=== PATIENT | male | born 1955 | race Caucasian/White ===

== ENCOUNTER 2019-01-22 10:09 | Observation (INO) ==
[2019-01-22] MEDS ORDERED: Ipratropium/Albuterol Neb 3 ML IH ONE (10:39)
[2019-01-22 11:42] LABS: Basophils % 0.3 %; Eosinophils # 0.1 K/mcL (0.0-0.6); Eosinophils % 1.5 %; Hematocrit 33.9 % (37.5-50.1); Hemoglobin 11.7 g/dL (12.9-16.9); Immature Granulocytes % 0.9 % (0-4); Lymphocytes # 0.7 K/mcL (0.6-4.6); Lymphocytes % 20.2 %; Mean Corpuscular HGB Conc 34.5 g/dL (31.6-35.5); Mean Corpuscular Hemoglobin 33.1 pg (28.0-33.3); Mean Corpuscular Volume 95.8 fL (83.0-100.0); Monocytes # 0.4 K/mcL (0.0-1.3); Monocytes % 10.7 %; Neutrophils # 2.2 K/mcL (1.6-8.9); Red Blood Count 3.54 M/mcL (4.19-5.50); Red Cell Distribution Width 12.7 % (11.5-14.5); Segmented Neutrophils % 66.4 %; White Blood Count 3.3 K/mcL (4.3-11.1)
[2019-01-22 11:43] LABS: Platelet Count 84 K/mcL (140-400)
[2019-01-22] MEDS ORDERED: Aspirin 81 MG TAB.CHEW PO SCH (11:45)
[2019-01-22 11:58] LABS: BUN/Creatinine Ratio 10 (6-26); Blood Urea Nitrogen 10 mg/dL (8-23); Calcium 9.1 mg/dL (8.6-10.3); Carbon Dioxide 27 mEq/L (23-29); Chloride 104 mEq/L (98-107); Glucose 124 mg/dL (70-105); Osmolality,Calculated 284 (280-300); Potassium 4.1 mEq/L (3.5-5.1); Sodium 137 mEq/L (136-145); eGFR For African Americans > 60 (> 60); eGFR For Non-African Americans > 60 (> 60)
[2019-01-22] MEDS ORDERED: Azithromycin 500 MG in D5% in Water 250 ML IVPB ONE (12:15)
[2019-01-22] MEDS ORDERED: Naloxone 0.4 MG/ML INJ IVP PRN (16:15)
[2019-01-22] MEDS ORDERED: Acetaminophen 325 MG TABLET PO PRN (16:15)
[2019-01-22] MEDS ORDERED: *HR* HYDROcodone/Acet 5/325 mg TABLET PO PRN (16:15)
[2019-01-22] MEDS ORDERED: Ondansetron 4 MG/2 ML VIAL IVP PRN (16:15)
[2019-01-22] MEDS ORDERED: Albuterol 2.5 MG/3 ML NEBULIZER IH PRN (16:18)
[2019-01-22 18:48] LABS: Adenovirus Not Detected (Not Detect); Bordetella Pertussis Not Detected (Not Detect); Chlamydophila pneumoniae Not Detected (Not Detect); Coronavirus 229E Not Detected (Not Detect); Coronavirus HKU1 Not Detected (Not Detect); Coronavirus NL63 Not Detected (Not Detect); Coronavirus OC43 Not Detected (Not Detect); Human Metapneumovirus Not Detected (Not Detect); Human Rhinovirus/Enterovirus Not Detected (Not Detect); Influenza A Subtype 2009 H1 Not Detected (Not Detect); Influenza B Not Detected (Not Detect); Mycoplasma pneumoniae Not Detected (Not Detect); Parainfluenza Virus 1 Not Detected (Not Detect); Parainfluenza Virus 2 Not Detected (Not Detect); Parainfluenza Virus 3 Not Detected (Not Detect); Parainfluenza Virus 4 Not Detected (Not Detect); Respiratory Syncytial Virus Not Detected (Not Detect)
[2019-01-22] MEDS: Ipratropium/Albuterol Neb 3 ML IH SCH ×2 (19:53→23:08)
[2019-01-23 01:43] LABS: Eosinophils % 0.9 %
[2019-01-23 01:45] LABS: Basophils % 0.6 %; Hematocrit 31.5 % (37.5-50.1); Immature Granulocytes % 1.3 % (0-4); Immature Platelets 2.4 % (1.1-6.1); Lymphocytes # 0.3 K/mcL (0.6-4.6); Lymphocytes % 8.8 %; Mean Corpuscular HGB Conc 34.9 g/dL (31.6-35.5); Mean Corpuscular Hemoglobin 33.5 pg (28.0-33.3); Mean Platelet Volume 9.9 fL (9.4-12.4); Monocytes # 0.4 K/mcL (0.0-1.3); Monocytes % 12.9 %; Neutrophils # 2.4 K/mcL (1.6-8.9); Red Blood Count 3.28 M/mcL (4.19-5.50); Red Cell Distribution Width 12.9 % (11.5-14.5); Segmented Neutrophils % 75.5 %; White Blood Count 3.2 K/mcL (4.3-11.1)
[2019-01-23 01:49] LABS: Platelet Count 87 K/mcL (140-400)
[2019-01-23 02:03] LABS: BUN/Creatinine Ratio 10 (6-26); Blood Urea Nitrogen 11 mg/dL (8-23); Calcium 8.9 mg/dL (8.6-10.3); Carbon Dioxide 26 mEq/L (23-29); Chloride 104 mEq/L (98-107); Glucose 133 mg/dL (70-105); Magnesium 1.8 mg/dL (1.6-2.6); Osmolality,Calculated 287 (280-300); Potassium 3.5 mEq/L (3.5-5.1); Sodium 138 mEq/L (136-145); eGFR For African Americans > 60 (> 60); eGFR For Non-African Americans > 60 (> 60)
[2019-01-23] MEDS: Ipratropium/Albuterol Neb 3 ML IH SCH ×3 (04:15→11:25)
[2019-01-23] MEDS ORDERED: Azithromycin 500 MG in D5% in Water 250 ML IVPB SCH (08:00)
[2019-01-23] MEDS ORDERED: cefTRIAXone 1,000 MG in Water for inj. (sterile) 10 ML IVP SCH (09:00)
[2019-01-23] MEDS ORDERED: lamiVUDine 150 MG TABLET PO SCH (09:00)
[2019-01-23] MEDS: Loratadine 10 MG TABLET PO SCH (09:54)
[2019-01-23] MEDS: Aspirin Enteric Coated 81 MG Tablet PO SCH (09:54)
[2019-01-23] MEDS ORDERED: Doxycycline 100 MG CAPSULE PO SCH (11:15)
[2019-01-23] MEDS: predniSONE 20 MG TABLET PO SCH (12:22)
[2019-01-23] MEDS: Ipratropium/Albuterol Neb 3 ML IH PRN (22:12)
[2019-01-24] MEDS: Ipratropium/Albuterol Neb 3 ML IH PRN (03:18)
[2019-01-24 08:01] VITALS: BP 105/66
[2019-01-24] MEDS: Aspirin Enteric Coated 81 MG Tablet PO SCH (08:56)
[2019-01-24] MEDS: predniSONE 20 MG TABLET PO SCH (08:57)
[2019-01-24] MEDS: Loratadine 10 MG TABLET PO SCH (08:57)
[2019-01-24] MEDS ORDERED: lamiVUDine 150 MG TABLET PO SCH (09:00)
[2019-01-24] MEDS ORDERED: cefTRIAXone 1,000 MG in Water for inj. (sterile) 10 ML IVP SCH (09:00)
== END 2019-01-24 11:12 | disposition home or self-care (01) ==
LOC: EMEROOARM 10:09 → 3BNU 10:09
PROVIDERS: ADMIT Internal Medicine; ATTEND Internal Medicine

== ENCOUNTER 2019-05-05 18:23 | Inpatient (IN) ==
[2019-05-05] MEDS ORDERED: Ipratropium/Albuterol Neb 3 ML IH ONE ×3 (20:33→22:45)
[2019-05-05] MEDS ORDERED: 0.9 % Sodium Chloride 1,000 ML IVC ONE (20:33)
[2019-05-05 21:29] LABS: Basophils % 0.4 %; Eosinophils % 1.1 %; Hematocrit 32.6 % (37.5-50.1); Hemoglobin 11.7 g/dL (12.9-16.9); Mean Corpuscular HGB Conc 35.9 g/dL (31.6-35.5); Mean Corpuscular Hemoglobin 33.8 pg (28.0-33.3); Mean Corpuscular Volume 94.2 fL (83.0-100.0); Mean Platelet Volume 9.9 fL (9.4-12.4); Red Blood Count 3.46 M/mcL (4.19-5.50); Red Cell Distribution Width 13.4 % (11.5-14.5)
[2019-05-05 21:30] LABS: White Blood Count 2.8 K/mcL (4.3-11.1)
[2019-05-05 21:31] LABS: Immature Granulocytes % 13.6 % (0-4); Lymphocytes # 0.3 K/mcL (0.6-4.6); Lymphocytes % 12.2 %; Monocytes # 0.4 K/mcL (0.0-1.3); Neutrophils # 1.6 K/mcL (1.6-8.9); Segmented Neutrophils % 58.7 %
[2019-05-05 21:32] LABS: Platelet Count 82 K/mcL (140-400)
[2019-05-05 21:48] LABS: Platelet Estimate Decreased (Normal)
[2019-05-05 21:50] LABS: BUN/Creatinine Ratio 14 (6-26); Blood Urea Nitrogen 15 mg/dL (8-23); Calcium 8.4 mg/dL (8.6-10.3); Carbon Dioxide 26 mEq/L (23-29); Chloride 100 mEq/L (98-107); Glucose 95 mg/dL (70-105); Osmolality,Calculated 283 (280-300); Potassium 3.3 mEq/L (3.5-5.1); Sodium 136 mEq/L (136-145); eGFR For African Americans > 60 (> 60); eGFR For Non-African Americans > 60 (> 60)
[2019-05-05 21:51] LABS: Troponin I < 0.03 ng/mL (< 0.04)
[2019-05-05] MEDS ORDERED: cefTRIAXone 1,000 MG in Water for inj. (sterile) 10 ML IVP ONE (22:31)
[2019-05-05] MEDS ORDERED: Benzonatate 100 MG CAPSULE PO STA (22:35)
[2019-05-05] MEDS: Azithromycin 500 MG in 0.9 % Sodium Chloride 250 ML IVPB ONE ×2 (22:55→23:02)
[2019-05-05] MEDS ORDERED: levoFLOXacin 750 MG/150 ML 750 MG/150 ML BAG IVPB ONE (23:05)
[2019-05-06] MEDS ORDERED: Naloxone 0.4 MG/ML INJ IVP PRN (03:42)
[2019-05-06 04:49] LABS: Hematocrit 31.4 % (37.5-50.1); Mean Corpuscular Hemoglobin 33.6 pg (28.0-33.3)
[2019-05-06 04:51] LABS: Hemoglobin 11.2 g/dL (12.9-16.9); Immature Platelets 2.3 % (1.1-6.1); Mean Corpuscular HGB Conc 35.7 g/dL (31.6-35.5); Mean Corpuscular Volume 94.3 fL (83.0-100.0); Mean Platelet Volume 9.7 fL (9.4-12.4); Red Blood Count 3.33 M/mcL (4.19-5.50); Red Cell Distribution Width 13.2 % (11.5-14.5); White Blood Count 2.6 K/mcL (4.3-11.1)
[2019-05-06 05:01] LABS: BUN/Creatinine Ratio 13 (6-26); Blood Urea Nitrogen 14 mg/dL (8-23); Calcium 8.1 mg/dL (8.6-10.3); Carbon Dioxide 27 mEq/L (23-29); Chloride 101 mEq/L (98-107); Glucose 105 mg/dL (70-105); Magnesium 1.6 mg/dL (1.6-2.6); Osmolality,Calculated 285 (280-300); Potassium 3.5 mEq/L (3.5-5.1); Sodium 137 mEq/L (136-145); eGFR For African Americans > 60 (> 60); eGFR For Non-African Americans > 60 (> 60)
[2019-05-06] MEDS: Benzonatate 100 MG CAPSULE PO PRN (22:50)
[2019-05-06] MEDS: levoFLOXacin 750 MG/150 ML 750 MG/150 ML BAG IVPB SCH (22:51)
[2019-05-07 07:42] LABS: BUN/Creatinine Ratio 14 (6-26); Blood Urea Nitrogen 14 mg/dL (8-23); Calcium 8.7 mg/dL (8.6-10.3); Carbon Dioxide 27 mEq/L (23-29); Chloride 100 mEq/L (98-107); Glucose 101 mg/dL (70-105); Osmolality,Calculated 277 (280-300); Potassium 3.9 mEq/L (3.5-5.1); Sodium 133 mEq/L (136-145); eGFR For African Americans > 60 (> 60); eGFR For Non-African Americans > 60 (> 60)
[2019-05-07] MEDS: Budesonide/Formoterol 160/4.5 1 PUFF INH IH SCH (07:43)
[2019-05-07] MEDS: Loratadine 10 MG TABLET PO SCH (10:03)
[2019-05-07] MEDS: Benzonatate 100 MG CAPSULE PO PRN ×2 (10:03→18:30)
[2019-05-07] MEDS: Acetaminophen 325 MG TABLET PO PRN ×2 (12:16→18:30)
[2019-05-07 12:36] LABS: Hemoglobin 13.1 g/dL (12.9-16.9); Red Cell Distribution Width 13.2 % (11.5-14.5)
[2019-05-07 12:37] LABS: Basophils % 0.3 %; Eosinophils # 0.1 K/mcL (0.0-0.6); Eosinophils % 2.4 %; Immature Granulocytes % 2.1 % (0-4); Immature Platelets 3.6 % (1.1-6.1); Lymphocytes # 0.2 K/mcL (0.6-4.6); Lymphocytes % 7.2 %; Mean Corpuscular HGB Conc 36.4 g/dL (31.6-35.5); Mean Corpuscular Hemoglobin 33.9 pg (28.0-33.3); Monocytes # 0.4 K/mcL (0.0-1.3); Monocytes % 12.6 %; Neutrophils # 2.5 K/mcL (1.6-8.9); Red Blood Count 3.87 M/mcL (4.19-5.50); Segmented Neutrophils % 75.4 %; White Blood Count 3.3 K/mcL (4.3-11.1)
[2019-05-07 12:39] LABS: Platelet Count 88 K/mcL (140-400)
[2019-05-07] MEDS: Ipratropium/Albuterol Neb 3 ML IH PRN (19:37)
[2019-05-08] MEDS: levoFLOXacin 750 MG/150 ML 750 MG/150 ML BAG IVPB SCH ×2 (00:10→23:25)
[2019-05-08 02:59] LABS: Basophils % 0.4 %; White Blood Count 2.8 K/mcL (4.3-11.1)
[2019-05-08 03:01] LABS: Eosinophils # 0.1 K/mcL (0.0-0.6); Hematocrit 35.3 % (37.5-50.1); Hemoglobin 12.9 g/dL (12.9-16.9); Immature Granulocytes % 3.6 % (0-4); Lymphocytes # 0.3 K/mcL (0.6-4.6); Lymphocytes % 10.5 %; Mean Corpuscular HGB Conc 36.5 g/dL (31.6-35.5); Mean Corpuscular Hemoglobin 33.9 pg (28.0-33.3); Mean Corpuscular Volume 92.7 fL (83.0-100.0); Mean Platelet Volume 9.5 fL (9.4-12.4); Monocytes # 0.4 K/mcL (0.0-1.3); Monocytes % 14.1 %; Neutrophils # 1.9 K/mcL (1.6-8.9); Red Blood Count 3.81 M/mcL (4.19-5.50); Red Cell Distribution Width 13.1 % (11.5-14.5); Segmented Neutrophils % 67.4 %
[2019-05-08 03:02] LABS: Platelet Count 86 K/mcL (140-400)
[2019-05-08 03:19] LABS: BUN/Creatinine Ratio 21 (6-26); Blood Urea Nitrogen 21 mg/dL (8-23); Calcium 8.7 mg/dL (8.6-10.3); Carbon Dioxide 26 mEq/L (23-29); Chloride 101 mEq/L (98-107); Glucose 106 mg/dL (70-105); Osmolality,Calculated 283 (280-300); Potassium 3.5 mEq/L (3.5-5.1); Sodium 135 mEq/L (136-145); eGFR For African Americans > 60 (> 60); eGFR For Non-African Americans > 60 (> 60)
[2019-05-08] MEDS: Budesonide/Formoterol 160/4.5 1 PUFF INH IH SCH (07:32)
[2019-05-08] MEDS: Loratadine 10 MG TABLET PO SCH (10:00)
[2019-05-08] MEDS: Acetaminophen 325 MG TABLET PO PRN (10:00)
[2019-05-08] MEDS: Aspirin Enteric Coated 81 MG Tablet PO SCH (10:00)
[2019-05-08] MEDS: Benzonatate 100 MG CAPSULE PO PRN ×2 (10:01→21:27)
[2019-05-08] MEDS: Ipratropium/Albuterol Neb 3 ML IH PRN (12:07)
[2019-05-09 04:18] LABS: Eosinophils % 3.7 %; Monocytes % 10.3 %; Red Cell Distribution Width 13.2 % (11.5-14.5)
[2019-05-09 04:20] LABS: Basophils % 0.3 %; Eosinophils # 0.1 K/mcL (0.0-0.6); Hematocrit 35.1 % (37.5-50.1); Immature Platelets 3.2 % (1.1-6.1); Lymphocytes # 0.4 K/mcL (0.6-4.6); Mean Corpuscular Hemoglobin 34.2 pg (28.0-33.3); Mean Corpuscular Volume 92.4 fL (83.0-100.0); Mean Platelet Volume 9.8 fL (9.4-12.4); Monocytes # 0.3 K/mcL (0.0-1.3); Neutrophils # 2.1 K/mcL (1.6-8.9); Segmented Neutrophils % 69.7 %
[2019-05-09 04:21] LABS: Platelet Count 89 K/mcL (140-400)
[2019-05-09 04:35] LABS: BUN/Creatinine Ratio 21 (6-26); Blood Urea Nitrogen 22 mg/dL (8-23); Calcium 8.7 mg/dL (8.6-10.3); Carbon Dioxide 26 mEq/L (23-29); Chloride 102 mEq/L (98-107); Glucose 117 mg/dL (70-105); Osmolality,Calculated 284 (280-300); Sodium 135 mEq/L (136-145); eGFR For African Americans > 60 (> 60); eGFR For Non-African Americans > 60 (> 60)
[2019-05-09] MEDS: Ipratropium/Albuterol Neb 3 ML IH PRN (07:35)
[2019-05-09] MEDS: Budesonide/Formoterol 160/4.5 1 PUFF INH IH SCH (07:35)
[2019-05-09] MEDS: Aspirin Enteric Coated 81 MG Tablet PO SCH (09:56)
[2019-05-09] MEDS: Loratadine 10 MG TABLET PO SCH (09:56)
[2019-05-09 10:07] VITALS: BP 114/78
== END 2019-05-09 12:22 | disposition home or self-care (01) | DRG 139 ==
LOC: 3ANU 18:23 → EMEROOARM 18:23 → SUATTDRO 23:24 → 3ANU 23:28
PROVIDERS: ADMIT Family Medicine; ATTEND Internal Medicine

== ENCOUNTER 2019-07-11 19:49 | Observation (INO) ==
[2019-07-11 21:37] LABS: Basophils % 0.6 %; Eosinophils # 0.1 K/mcL (0.0-0.6); Hematocrit 37.1 % (37.5-50.1); Hemoglobin 13.3 g/dL (12.9-16.9); Immature Granulocytes % 3.3 % (0-4); Lymphocytes # 0.6 K/mcL (0.6-4.6); Lymphocytes % 13.1 %; Mean Corpuscular HGB Conc 35.8 g/dL (31.6-35.5); Mean Corpuscular Hemoglobin 32.8 pg (28.0-33.3); Mean Corpuscular Volume 91.6 fL (83.0-100.0); Mean Platelet Volume 9.8 fL (9.4-12.4); Monocytes # 0.4 K/mcL (0.0-1.3); Neutrophils # 3.6 K/mcL (1.6-8.9); Platelet Count 149 K/mcL (140-400); Red Blood Count 4.05 M/mcL (4.19-5.50); Red Cell Distribution Width 13.1 % (11.5-14.5); White Blood Count 4.9 K/mcL (4.3-11.1)
[2019-07-11 21:54] LABS: Alanine Aminotransferase 19 Units/L (7-52); Albumin 3.5 g/dL (3.5-5.7); Albumin/Globulin Ratio 1.3 (1.1-2.2); Alkaline Phosphatase 69 Units/L (34-104); Aspartate Amino Transferase 23 Units/L (13-39); BUN/Creatinine Ratio 12 (6-26); Bilirubin,Total 1.1 mg/dL (0.3-1.0); Blood Urea Nitrogen 12 mg/dL (8-23); Carbon Dioxide 25 mEq/L (23-29); Chloride 100 mEq/L (98-107); Globulin 2.8 g/dL (2.4-3.5); Glucose 93 mg/dL (70-105); Osmolality,Calculated 275 (280-300); Sodium 133 mEq/L (136-145); Total Protein 6.3 g/dL (6.4-8.9); eGFR For African Americans > 60 (> 60); eGFR For Non-African Americans > 60 (> 60)
[2019-07-11 22:04] LABS: Bilirubin,Urine Negative (Negative); Blood,Urine Negative (Negative); Clarity,Urine Clear (Clear); Color,Urine Yellow (Yellow); Glucose,Urine (UA) Normal (Normal); Ketones,Urine Negative (Negative); Leukocyte Esterase,Urine Negative (Negative); Nitrite,Urine Negative (Negative); PH,Urine 5.5 pH Units (5.0-8.0); Protein,Urine Negative (Neg-Trace); Specific Gravity,Urine 1.025 (1.010-1.025); Urobilinogen,Urine Normal (Normal)
[2019-07-11 22:14] LABS: Bacteria,Urine None Seen per hpf (None-Few); Hyaline Casts,Urine None Seen per lpf (None-Few); RBC,Urine 0-3 per hpf (0-3); Squamous Epithelial Cell,Urine Few per lpf (None-Few); WBC,Urine 0-3 per hpf (0-3)
[2019-07-11 22:19] LABS: Platelet Estimate Normal (Normal)
[2019-07-12] MEDS ORDERED: Naloxone 0.4 MG/ML INJ IVP PRN
[2019-07-12] MEDS: hydrOXYzine pamoate 25 MG CAPSULE PO PRN ×2 (02:50→21:15)
[2019-07-12] MEDS: LAMIVUDINE 100 MG PO SCH ×2 (02:51→08:10)
[2019-07-12 06:16] LABS: Basophils % 0.7 %; Eosinophils % 0.9 %; Hematocrit 34.3 % (37.5-50.1); Hemoglobin 11.8 g/dL (12.9-16.9); Immature Granulocytes % 8.7 % (0-4); Lymphocytes # 0.8 K/mcL (0.6-4.6); Lymphocytes % 17.9 %; Mean Corpuscular HGB Conc 34.4 g/dL (31.6-35.5); Mean Corpuscular Hemoglobin 33.1 pg (28.0-33.3); Mean Corpuscular Volume 96.1 fL (83.0-100.0); Mean Platelet Volume 9.8 fL (9.4-12.4); Monocytes # 0.4 K/mcL (0.0-1.3); Monocytes % 9.2 %; Platelet Count 117 K/mcL (140-400); Red Blood Count 3.57 M/mcL (4.19-5.50); Red Cell Distribution Width 13.1 % (11.5-14.5); Segmented Neutrophils % 62.6 %; White Blood Count 4.2 K/mcL (4.3-11.1)
[2019-07-12 06:24] LABS: Neutrophils # 2.6 K/mcL (1.6-8.9)
[2019-07-12 06:38] LABS: BUN/Creatinine Ratio 12 (6-26); Blood Urea Nitrogen 12 mg/dL (8-23); Calcium 8.7 mg/dL (8.6-10.3); Carbon Dioxide 27 mEq/L (23-29); Chloride 99 mEq/L (98-107); Glucose 100 mg/dL (70-105); Osmolality,Calculated 278 (280-300); Potassium 4.3 mEq/L (3.5-5.1); Sodium 134 mEq/L (136-145); eGFR For African Americans > 60 (> 60); eGFR For Non-African Americans > 60 (> 60)
[2019-07-12 06:56] LABS: Platelet Estimate Normal (Normal)
[2019-07-12] MEDS ORDERED: Ipratropium/Albuterol Neb 3 ML IH PRN (11:54)
[2019-07-13 05:35] LABS: BUN/Creatinine Ratio 17 (6-26); Blood Urea Nitrogen 16 mg/dL (8-23); Calcium 8.4 mg/dL (8.6-10.3); Carbon Dioxide 28 mEq/L (23-29); Chloride 100 mEq/L (98-107); Glucose 110 mg/dL (70-105); Osmolality,Calculated 282 (280-300); Potassium 4.2 mEq/L (3.5-5.1); Sodium 135 mEq/L (136-145); eGFR For African Americans > 60 (> 60); eGFR For Non-African Americans > 60 (> 60)
[2019-07-13 05:58] LABS: Hematocrit 34.6 % (37.5-50.1); Hemoglobin 12.4 g/dL (12.9-16.9); Lymphocytes # 0.8 K/mcL (0.6-4.6); Mean Corpuscular HGB Conc 35.8 g/dL (31.6-35.5); Mean Corpuscular Hemoglobin 32.9 pg (28.0-33.3); Mean Corpuscular Volume 91.8 fL (83.0-100.0); Mean Platelet Volume 9.9 fL (9.4-12.4); Platelet Count 136 K/mcL (140-400); Red Blood Count 3.77 M/mcL (4.19-5.50); Red Cell Distribution Width 12.9 % (11.5-14.5); White Blood Count 4.2 K/mcL (4.3-11.1)
[2019-07-13 06:13] LABS: Monocytes # 0.2 K/mcL (0.0-1.3); Neutrophils # 3.3 K/mcL (1.6-8.9)
[2019-07-13] MEDS: Budesonide/Formoterol 160/4.5 1 PUFF INH IH SCH ×2 (07:29→20:09)
[2019-07-13] MEDS: LAMIVUDINE 100 MG PO SCH (09:43)
[2019-07-13] MEDS: Loratadine 10 MG TABLET PO SCH (09:56)
[2019-07-13] MEDS: Aspirin Enteric Coated 81 MG Tablet PO SCH (09:57)
[2019-07-13] MEDS ORDERED: Ondansetron 4 MG/2 ML VIAL IVP PRN (17:29)
[2019-07-13] MEDS ORDERED: Acetaminophen 325 MG TABLET PO ONE (20:18)
[2019-07-13] MEDS: hydrOXYzine pamoate 25 MG CAPSULE PO PRN (20:50)
[2019-07-14 05:41] LABS: Hematocrit 34.9 % (37.5-50.1); Mean Corpuscular HGB Conc 34.4 g/dL (31.6-35.5); Mean Corpuscular Hemoglobin 32.8 pg (28.0-33.3); Mean Corpuscular Volume 95.4 fL (83.0-100.0); Mean Platelet Volume 9.5 fL (9.4-12.4); Platelet Count 139 K/mcL (140-400); Red Blood Count 3.66 M/mcL (4.19-5.50); Red Cell Distribution Width 12.9 % (11.5-14.5); White Blood Count 3.5 K/mcL (4.3-11.1)
[2019-07-14 05:47] LABS: BUN/Creatinine Ratio 17 (6-26); Blood Urea Nitrogen 17 mg/dL (8-23); Carbon Dioxide 31 mEq/L (23-29); Chloride 98 mEq/L (98-107); Glucose 109 mg/dL (70-105); Osmolality,Calculated 288 (280-300); Sodium 138 mEq/L (136-145); eGFR For African Americans > 60 (> 60); eGFR For Non-African Americans > 60 (> 60)
[2019-07-14] MEDS: Budesonide/Formoterol 160/4.5 1 PUFF INH IH SCH (07:23)
[2019-07-14 07:44] VITALS: BP 102/66
[2019-07-14] MEDS: Loratadine 10 MG TABLET PO SCH (09:10)
[2019-07-14] MEDS: Aspirin Enteric Coated 81 MG Tablet PO SCH (09:11)
== END 2019-07-14 10:09 | disposition home or self-care (01) ==
LOC: EMEROOARM 19:49 → 3BNU 19:49
PROVIDERS: ADMIT Internal Medicine; ATTEND Internal Medicine